=== PATIENT | male | born 1990 | race Two or more races ===

== ENCOUNTER 2018-09-19 09:57 | Emergency (ER) | payer SELFPAY ==
[~2018-09-19] VITALS: Ht 185.4 cm; Wt 72.6 kg
[2018-09-19 10:05] VITALS: BP 166/88
[2018-09-19] MEDS ORDERED: IBUPROFEN 600 MG TABLET PO ONE ×2 (10:30→10:36)
--- NOTE | 2018-09-19 10:50 | NUR ---
PT SAID HE WAS STEPPING OUT AND ADVISED PT NOT TO GO.
--- NOTE | 2018-09-19 11:15 | NUR ---
PT STILL NOT IN THE BED.
--- NOTE | 2018-09-19 11:16 | NUR ---
LEO HERNANDEZ INFORMED ADVISED TO DEPART ELOPEMENT.
== END 2018-09-19 11:18 | disposition left against medical advice (07) ==
LOC: ER 09:58
DX: S60.031A Contusion of right middle finger without damage to nail, initial encounter (principal); Z86.19 Personal history of other infectious and parasitic diseases; Z88.5 Allergy status to narcotic agent; F17.210 Nicotine dependence, cigarettes, uncomplicated; X58.XXXA Exposure to other specified factors, initial encounter; Y93.12 Activity, springboard and platform diving; Y92.89 Other specified places as the place of occurrence of the external cause; Y99.8 Other external cause status
CPT/HCPCS: A4606; Z7610